=== PATIENT | female | born 1960 | race Caucasian/White ===

== ENCOUNTER → 2024-10-28 | Outpatient (CLI) | payer MEDICARE ==
--- NOTE | 2024-10-29 12:39 | CTL ---
EXAMINATION TYPE: CT Low Dose Lung DATE OF EXAM: 10/28/2024 5:12 PM COMPARISON: None. SCREENING VISIT: Initial CT DIAGNOSTIC QUALITY: Limited, but interpretable CLINICAL INDICATION: Female, 64 years old with history of Z12.2, Z87.891, history of smoking, Lung ca ncer screening, History of tobacco use. TECHNIQUE: Low dose computed tomography scan was performed through the chest at 1 mm thick sections a nd reconstructed images in the coronal plane at 1 mm thick sections. Contrast used: mL of , (none if empty) Oral contrast used: (none if empty) CT DLP: 83.72 mGycm, Automated exposure control for dose reduction was used. CT CTDI: 2.18 mGy, Automated exposure control for dose reduction was used. FINDINGS: LUNG NODULES: Present, detailed below: 1. There is a 0.4 cm nodule posterior lateral right apex. Series 4 image 44. LUNGS: COPD: Severity: Mild Fibrosis: Severity: None Lymph nodes: There is a 1.1 cm pretracheal lymph node. Series 3 image 122. Other findings: None RIGHT PLEURAL SPACE: Effusion: None Calcification: None Thickening: None Pneumothorax: None LEFT PLEURAL SPACE: Effusion: None Calcification: None Thickening: There is a 1.7 cm section of mild pleural thickening posterior lateral left apex. Series 4 image 44. Pneumothorax: None HEART: Other: Ascending thoracic aorta at the level the main pulmonary artery measures 3.3 cm. The main pul monary artery at the bifurcation measures 2.1 cm. Heart Size: Normal Coronary calcification: No significant coronary artery calcifications. Pericardial effusion: None OTHER FINDINGS: Upper abdomen: Normal Bony thorax: Normal Supraclavicular region: Normal IMPRESSION: 1. No suspicious changes to suggest primary or metastatic neoplasm. FOLLOW UP CT CHEST RECOMMENDATION: Follow-up low-dose CT chest one year CT LUNG RAD: Lung-Rad 2 Benign Appearance or Behavior [facility], Workstation: [id number], 10/29/2024 12:36 PM
== END | disposition home or self-care (01) ==
LOC: RADCTMAIN 15:55
PROVIDERS: ATTEND Family Medicine
DX: Z12.2 Encounter for screening for malignant neoplasm of respiratory organs (principal); Z87.891 Personal history of nicotine dependence
CPT/HCPCS: 71271